=== PATIENT | female | born 1990 | race Caucasian/White ===

== ENCOUNTER 2017-06-17 10:41 | Day surgery (SDC) | payer MEDICAID ==
[2017-06-17 11:16] VITALS: PULSE 76
[2017-06-17] MEDS ORDERED: LR 1,000 ML IV ONE (11:16)
--- NOTE | 2017-06-17 12:01 | PDANEPAE ---
ANE History of Present Illness here for colonoscopy EGD ANE Past Medical History - Cardiovascular History Hx Hypertension: No Hx Arrhythmias: No Hx Chest Pain: No Hx Coronary Artery / Peripheral Vascular Disease: No Hx CHF / Valvular Disease: No Hx Palpitations: No - Pulmonary History Hx COPD: No Hx Asthma/Reactive Airway Disease: No Hx Recent Upper Respiratory Infection: No Hx Oxygen in Use at Home: No Hx Sleep Apnea: No - Endocrine History Hx Diabetes: No Hypothyroid: No Hyperthyroid: No Obesity: no - Renal History Hx Renal Disorders: No - Liver History Hx Hepatic Disorders: No - Neurological & Psychiatric Hx Hx Neurological and Psychiatric Disorders: Yes Neurological / Psychiatric History Comment: anxiety depression ANE Review of Systems Review of systems is: negative Review of Systems: - Exercise capacity Exercise capacity: >=4 METS ANE Patient History - Allergies Allergies/Adverse Reactions: buprenorphine [From Suboxone] Allergy (Severe, Verified 06/17/17 11:05) Hives buspirone [From BuSpar] Allergy (Severe, Verified 06/17/17 11:05) Hives morphine Allergy (Severe, Verified 06/17/17 11:18) Hives naloxone [From Suboxone] Allergy (Severe, Verified 06/17/17 11:05) Hives - Home Medications Home medications: home medication list seen and reviewed Home Medications: Abilify 15 mg 06/17/17 [Last Taken 06/15/17] Omeprazole 40 mg 06/17/17 [Last Taken 06/16/17] Remeron Soltab 30 mg (*) 06/17/17 [Last Taken 06/15/17] traZODone 150MG (*) 06/17/17 [Last Taken 06/15/17] - NPO status NPO Status: no food or drink >8 hours NPO Since - Liquids (Date): 06/16/17 NPO Since - Liquids (Time): 22:00 NPO Since - Solids (Date): 06/16/17 NPO Since - Solids (Time): 09:00 - Smoking Hx Smoking Status: Light smoker ANE Labs/Vital Signs - Vital Signs Vital Signs: reviewed preoperatively; see RN documention for details Blood Pressure: 117/74 Heart Rate: 76 Respiratory Rate: 14 O2 Sat (%): 96 Height: 167.64 cm Weight: 65.771 kg ANE Physical Exam - Airway Neck exam: FROM Mallampati Score: Class 1 - Pulmonary Pulmonary: no respiratory distress - Cardiovascular Cardiovascular: regular rate and rhythym - ASA Status ASA Status: II ANE Anesthesia Plan Anesthesia Plan: GA with mask
[2017-06-17] MEDS ORDERED: PROMETHAZINE HCL 25 MG/ML INJ IVP PRN (12:02)
[2017-06-17] MEDS ORDERED: DEXAMETHASONE 4 MG/ML VIAL IVP PRN (12:02)
[2017-06-17] MEDS ORDERED: ONDANSETRON 4 MG/2 ML VIAL IVP PRN (12:02)
[2017-06-17] MEDS ORDERED: LR 500 ML IV PRN (12:02)
[2017-06-17] MEDS ORDERED: NALOXONE HCL 0.4 MG/ML INJ IVP PRN (12:02)
[2017-06-17] MEDS ORDERED: fentaNYL 100 MCG/2 ML INJ IVP PRN (12:02)
[2017-06-17] MEDS ORDERED: PROPOFOL/EMULSION 500 MG/50 ML BOTTLE IV ONE (12:06)
[2017-06-17] MEDS ORDERED: PROPOFOL 200 MG/20 ML VIAL ONE (12:08)
--- NOTE | 2017-06-17 12:09 | PDHPUP ---
History & Physical Update H&P update statement: This history and physical update is based on an assessment of the patient which was completed after admission or registration (within 24 hours), but prior to the surgery/procedure. H&P update: H&P reviewed & patient examined, no change in patient's condition since H&P completed
--- NOTE | 2017-06-17 12:46 | GIREPORT ---
[facility] Surgical Services - Endoscopy Department Patient Name: Brenna Castellanos Procedure Date: 06/17/2017 11:51 AM Patient Type: Outpatient Attending MD/ ER Physician: Maryanne Gordon Procedure: Upper GI endoscopy Indications: Epigastric abdominal pain, Abdominal pain in the right upper quadrant, Nausea with vomiting Providers: Paras Cobos MD Referring MD: Irina Whitaker Medicines: Total IV Anesthesia (TIVA) = IV general Complications: No immediate complications. Estimated blood loss: Minimal. Description of Procedure: After obtaining informed consent, the endoscope was passed under direct vision. Throughout the procedure, the patient's blood pressure, pulse, and oxygen saturations were monitored continuously. The Endoscope was intro duced through the mouth, and advanced to the third part of duodenum. The uppe r GI endoscopy was accomplished without difficulty. The patient tolerated th e procedure well. Findings: The examined esophagus was normal. Diffuse mild inflammation characterized by erythema, friability and granularity was found in the gastric antrum. Biopsies were taken with a cold forceps for histology. Estimated blood loss was minimal. The examined duodenum was normal. Biopsies for histology were taken wit h a cold forceps for evaluation of celiac disease. Estimated blood loss was minimal. The exam was otherwise without abnormality. Estimated Blood Loss: Estimated blood loss was minimal. Post Op Diagnosis: - Normal esophagus. - Gastritis. Biopsied. - Normal examined duodenum. Biopsied. - The examination was otherwise normal. Recommendation: - Await pathology results. - My office will call with the pathology result with 5-7 days. If you h ave not heard from my office by 12-14, do not assume the pathology is isabel l, please call [phone] to get the pathology results. - Follow an antireflux regimen. - Use Prilosec (omeprazole) 40 mg PO daily. take 30-60 minutes before breakfast - Use Zantac (ranitidine) 300 mg PO at bedtime. - Perform a colonoscopy today. - Return to primary care physician as previously scheduled. - Return to GI clinic in 4 weeks. - Thank you for allowing me to help in your patient's care. Do not hesi hicks to call with any questions. Attending Participation: I personally performed the entire procedure. Chandrika Crain M.D Paras Cobos MD 06/17/2017 12:45:54 PM This report has been signed electronicallyMathew MD Chandrika Number of Addenda: 0 Note Initiated On: 06/17/2017 11:51 AM [email or web address]
--- NOTE | 2017-06-17 12:49 | GIREPORT ---
[facility] Surgical Services - Endoscopy Department Patient Name: Brenna Castellanos Procedure Date: 06/17/2017 12:24 PM Patient Type: Outpatient Attending MD/ ER Physician: Maryanne Gordon Procedure: Colonoscopy Indications: Abdominal pain in the right lower quadrant, Clinically significant diar matheus of unexplained origin Providers: Paras Cobos MD Referring MD: Irina Whitaker Medicines: Total IV Anesthesia (TIVA) Complications: No immediate complications. Estimated blood loss: Minimal. Description of Procedure: After obtaining informed consent, the scope was passed under direct vis ion. Throughout the procedure, the patient's blood pressure, pulse, and oxyg en saturations were monitored continuously. The Colonoscope with irrigatio n channel was introduced through the anus and advanced to the terminal il eum, with identification of the appendiceal orifice and IC valve. The colono scopy was performed without difficulty. The patient tolerated the procedure w ell. The quality of the bowel preparation was good. Findings: The digital rectal exam was normal. The distal ileum appeared normal. A localized area of mucosa in the terminal ileum was mildly congested a nd erythematous. Biopsies were taken with a cold forceps for histology. Estimated blood loss was minimal. The colon (entire examined portion) appeared normal. Biopsies for histo logy were taken with a cold forceps from the ascending colon, transverse col on, descending colon and sigmoid colon for evaluation of microscopic coliti s. Estimated blood loss was minimal. The exam was otherwise without abnormality. Estimated Blood Loss: Estimated blood loss was minimal. Post Op Diagnosis: - The examined portion of the ileum was normal. - Congested and erythematous mucosa in the terminal ileum. Biopsied. - The entire examined colon is normal. Biopsied. - The examination was otherwise normal. Recommendation: - Await pathology results. - My office will call with the pathology result with 5-7 days. If you h ave not heard from my office by 12-14, do not assume the pathology is isabel l, please call [phone] to get the pathology results. - Repeat colonoscopy at age 49 for screening purposes. - Resume previous diet. - Continue present medications. - Use Zantac (ranitidine) 300 mg PO at bedtime. - See EGD for other recommendations - Return to GI clinic in 4 weeks. - Return to primary care physician as previously scheduled. - Thank you for allowing me to help in your patient's care. Do not hesi hicks to call with any questions. Attending Participation: I personally performed the entire procedure. Chandrika Crain M.D Paras Cobos MD 06/17/2017 12:49:14 PM This report has been signed electronicallyMathew MD Chandrika Number of Addenda: 0 Note Initiated On: 06/17/2017 12:24 PM Total Procedure Duration Time 0 hours 13 minutes 10 seconds [email or web address]
--- NOTE | 2017-06-17 12:50 | POSTANESTH ---
Post Anesthetic Evaluation Cardiovascular Status: Normal, Stable Respiratory Status: Normal, Stable Level of Consciousness/Mental Status: Can Participate in Eval Pain Control: Adequate, Prn Tx Ordered Nausea/Vomiting Control: Adequate, Prn Tx Ordered Complications Possibly Related to Anesthesia: None Noted
[2017-06-17 12:53] VITALS: TEMP 97.2
--- NOTE | 2017-06-17 12:59 | POSTOPPROG ---
Post Op Note Date of Operation: 06/17/17 Surgeon: Frank Cobos Anesthesiologist: Michael Anesthesia: Other (Specify) (IV general) Pre-op Diagnosis: diarrhea, abdo beverly, n/v Post-op Diagnosis: gastritis, nml colon Indication: n/v abdo pain, diarrhea Procedure: egd and bx, colon and bx Findings: gastritis, mild abnl TI nml colon Inf/Abcess present in the surg proc area at time of surgery?: No EBL: Minimal (few ml from cold forceps bx) Total fluids administered: 300ml LR Complications: none immediate
[2017-06-17 13:08] VITALS: BP 113/95
[2017-06-17 13:11] VITALS: RESP 19; O2SAT 97
== END 2017-06-17 13:39 | disposition home or self-care (01) ==
LOC: FSGY 10:41
PROVIDERS: ATTEND Internal Medicine Gastroenterology
PROC: 0DB98ZX Excision of Duodenum, Via Natural or Artificial Opening Endoscopic, Diagnostic (ICD-10-PCS; principal; 2017-06-17 12:00)
PROC: 0DBB8ZX Excision of Ileum, Via Natural or Artificial Opening Endoscopic, Diagnostic (ICD-10-PCS; principal; 2017-06-17 12:00)
PROC: 0DB68ZX Excision of Stomach, Via Natural or Artificial Opening Endoscopic, Diagnostic (ICD-10-PCS; principal; 2017-06-17 12:00)
PROC: 0DBE8ZX Excision of Large Intestine, Via Natural or Artificial Opening Endoscopic, Diagnostic (ICD-10-PCS; principal; 2017-06-17 12:00)
DX: R10.31 Right lower quadrant pain (principal); R19.7 Diarrhea, unspecified; R11.2 Nausea with vomiting, unspecified; R10.11 Right upper quadrant pain; K29.70 Gastritis, unspecified, without bleeding
CPT/HCPCS: J2704

== ENCOUNTER 2017-06-28 12:40 | Emergency (ER) | payer OTHER, MEDICAID ==
[2017-06-28 12:47] VITALS: BP 135/78; PULSE 116; RESP 16; TEMP 98.4; O2SAT 94
--- NOTE | 2017-06-28 13:27 | EDPHY ---
H & P Time Seen by Provider: 06/28/17 13:07 HPI/ROS: CHIEF COMPLAINT: Left forearm laceration HISTORY OF PRESENT ILLNESS: 19-year-old immunocompetent female right-hand dominant with up-to-date tetanus was at work cleaning a wine glass when the wine glass broke the stem impacted her left forearm. Accidental. No foreign body sensation. No paresthesia. Occurred shortly prior to arrival PHYSICAL EXAM (Prior to examination, patient consented to physical exam, hands were washed and my usual and customary physical exam procedures followed) 1) GENERAL: Well-developed, well-nourished, alert and oriented. Appears to be in no acute distress. 2) HEAD: Normocephalic 3) HEENT: sclera anicteric 4) LUNGS: Breathing comfortably. 5) SKIN: Left ulnar forearm 2.5 cm laceration. 6) MUSCULOSKELETAL: No deficits distally. Brisk pulses brisk capillary refill distally. 7) NEUROLOGIC: Radial ulnar median nerve function intact distally Smoking Status: Current every day smoker Constitutional: Initial Vital Signs Temperature (C) 36.9 C 06/28/17 12:45 Heart Rate 116 H 06/28/17 12:45 Respiratory Rate 16 06/28/17 12:45 Blood Pressure 135/78 H 06/28/17 12:45 O2 Sat (%) 94 06/28/17 12:45 O2 Delivery Mode Room Air Allergies/Adverse Reactions: buprenorphine [From Suboxone] Allergy (Severe, Verified 06/28/17 12:44) Hives buspirone [From BuSpar] Allergy (Severe, Verified 06/28/17 12:44) Hives morphine Allergy (Severe, Verified 06/28/17 12:44) Hives naloxone [From Suboxone] Allergy (Severe, Verified 06/28/17 12:44) Hives Home Medications: Medication Instructions Recorded Abilify 15 mg 06/17/17 Omeprazole 40 mg 06/17/17 Remeron Soltab 30 mg (*) 06/17/17 traZODone 150MG (*) 06/17/17 MDM/Departure - MDM Imaging Results: Images reviewed by myself Procedures: Procedure: Laceration repair. I explained the indications, risks and benefits for both laceration repair and anesthetic administration. Verbal consent was obtained from the patient. The laceration on the left forearm was anesthetized using 0.5% bupivicaine with epinephrine. After anesthetic administered the patient was observed for a period of time and had no apparent adverse effects. The wound was cleaned, prepped, draped in normal sterile fashion and explored to its base. No foreign body seen, no foreign bodies palpated. There were no deep structures involved. No tendon injury was identified. The wound was repaired with 3 simple interrupted 5 O Prolene sutures. The wound repair was complex. The procedure was performed by myself. Patient has been informed that scarring will occur, although efforts have been made to minimize this. ED Course/Re-evaluation: Care of patient under supervision of secondary supervising physician Dr Everett Cordero. - Depart Disposition: Home, Routine, Self-Care Clinical Impression: Laceration of left forearm Qualifiers: Encounter type: initial encounter Qualified Code(s): S51.812A - Laceration without foreign body of left forearm, initial encounter Condition: Good Instructions: Care For Your Stitches (ED), Laceration (ED) Additional Instructions: Return to the ER if you develop redness, swelling, discharge, warmth to the wound, red streaks going up your arm, or any other symptoms that concern you. Stand Alone Forms: Work Comp Follow Up Referrals: Return, to the ER in 10 days for suture removal [Other] - 07/08/17
== END 2017-06-28 14:30 | disposition home or self-care (01) ==
PROC: 0HQEXZZ Repair Left Lower Arm Skin, External Approach (ICD-10-PCS; principal; 2017-06-28)
DX: S51.812A Laceration without foreign body of left forearm, initial encounter (principal); F17.200 Nicotine dependence, unspecified, uncomplicated; W25.XXXA Contact with sharp glass, initial encounter; Y92.69 Other specified industrial and construction area as the place of occurrence of the external cause; Y99.0 Civilian activity done for income or pay; Y93.89 Activity, other specified